=== PATIENT | male | born 1995 | race Caucasian/White ===

== ENCOUNTER 2017-11-29 09:09 | Emergency (ER) | payer MEDICAID ==
[2017-11-29 09:34] VITALS: BP 183/89
--- NOTE | 2017-11-29 09:37 | ED Physician Documentation ---
PD HPI HEENT - Stated complaint Stated Complaint: R EAR PX - Chief complaint Chief Complaint: Heent - History obtained from History obtained from: Patient - History of Present Illness Timing - onset: Yesterday Timing - duration: Days (1-2) Timing - details: Gradual onset, Still present, Waxing and waning Location: Right ear (pain and less hearing right ear for couple of days, worsening. Tried to flush out ear but not improved.) Associated symptoms: No: Fever, Swollen nodes Similar symptoms before: Has not had sx before Recently seen: Not recently seen Review of Systems Constitutional: denies: Fever Ears: reports: Loss of hearing (right side), Ear pain. denies: Drainage/ discharge, Tinnitus/ringing Nose: denies: Rhinorrhea / runny nose, Congestion Throat: denies: Sore throat Respiratory: denies: Dyspnea, Cough GI: denies: Nausea, Vomiting Skin: denies: Rash, Lesions PD PAST MEDICAL HISTORY - Past Medical History Past Medical History: No Cardiovascular: None Respiratory: None Neuro: None HEENT: None - Present Medications Home Medications: Ambulatory Orders Medication Instructions Recorded Confirmed Cephalexin [Keflex] 500 mg PO QID #20 capsule 11/29/17 Neomycin/Polymyx/Hc Otic Drops 3 drops OT QID #1 bottle 11/29/17 [Cortisporin Ear Susp] - Allergies Allergies/Adverse Reactions: Allergies Allergy/AdvReac Type Severity Reaction Status Date / Time acetaminophen [From Vicodin] Allergy Unknown Verified 11/29/17 09:32 hydrocodone [From Vicodin] Allergy Unknown Verified 11/29/17 09:32 - Social History Does the pt smoke?: No Smoking Status: Never smoker PD ED PE NORMAL - Vitals Vital signs reviewed: Yes - General General: Alert and oriented X 3, No acute distress, Well developed/nourished - HEENT HEENT: Pharynx benign. No: Ears normal (left is okay. Right with wax impaction and can't see the TM. Earwax removed with currette in one large glob and the medial canal with redness, swelling, and some rawness (almost bleeding). The TM is also some red and swelling. ) - Neck Neck: Supple, no meningeal sign, Other (left anterior adenopathy neck) - Cardiac Cardiac: RRR, No murmur - Respiratory Respiratory: Clear bilaterally - Derm Derm: Normal color, Warm and dry, Other (no mastoid tenderness. ) - Neuro Neuro: Alert and oriented X 3, No motor deficit, Normal speech Results - Vitals Vitals: Oxygen O2 Source Room air PD MEDICAL DECISION MAKING - ED course Complexity details: considered differential (had wax impaction which came out easily with currette. Behind it, the canal was very red and raw with swelling of the tissue. TM itself was also some red with swelling. ), d/w patient - Sepsis Event Vital Signs: Oxygen O2 Source Room air Departure - Departure Disposition: 01 Home, Self Care Clinical Impression: Cellulitis of right ear canal Right otitis externa Qualifiers: Otitis externa type: unspecified type Chronicity: acute Qualified Code(s): H60.501 - Unspecified acute noninfective otitis externa, right ear Condition: Stable Record reviewed to determine appropriate education?: Yes Instructions: ED Otitis Externa Prescriptions: Cephalexin [Keflex] 500 mg PO QID #20 capsule Neomycin/Polymyx/Hc Otic Drops [Cortisporin Ear Susp] 3 drops OT QID #1 bottle Comments: The earwax is now out of the way. The ear canal and around the eardrum is red and irritated with swelling. We will treat it with oral antibiotics cephalexin 4 times a day for 5 days and also eardrops antibiotic with anti-inflammatory 4 times a day for the next several days. Tylenol or ibuprofen if needed for pains. Recheck if not better over the next several days. Discharge Date/Time: 11/29/17 10:14
== END 2017-11-29 10:14 | disposition home or self-care (01) ==
LOC: ED 09:09
DX: H60.11 Cellulitis of right external ear (principal); H60.501 Unspecified acute noninfective otitis externa, right ear
CPT/HCPCS: 69210; 99283